=== PATIENT | female | born 1985 | race Caucasian/White ===

== ENCOUNTER 2017-10-08 10:10 | Emergency (ER) | payer SELFPAY | END 2017-10-08 12:10 | disposition home or self-care (01) | LOC: MADERS 10:10 | DX: B02.9 Zoster without complications (principal); F17.210 Nicotine dependence, cigarettes, uncomplicated; Z86.61 Personal history of infections of the central nervous system | CPT/HCPCS: 99282 ==

== ENCOUNTER 2017-12-30 21:36 | Emergency (ER) | payer SELFPAY | END 2017-12-30 22:10 | disposition home or self-care (01) | LOC: MADERS 21:36 | DX: R09.89 Other specified symptoms and signs involving the circulatory and respiratory systems (principal); F17.210 Nicotine dependence, cigarettes, uncomplicated; F41.9 Anxiety disorder, unspecified | CPT/HCPCS: 99282 ==

== ENCOUNTER 2018-01-19 19:57 | Emergency (ER) | payer SELFPAY ==
[2018-01-19] MEDS ORDERED: ALPRAZolam 0.25 MG TAB ONE (20:51)
[2018-01-19 20:58] LABS: Bilirubin Negative (Negative); Blood, Urine Small (Negative); Glucose, Urine (Dipstick) Negative (Negative); Leukocyte Negative (Negative); Nitrite Negative (Negative); Protein, Urine (Dipstick) Negative (Neg-Trace); Urobilinogen 0.2 mg/dL (0.2-1.0)
[2018-01-19 20:59] LABS: Clarity Hazy (Clear)
[2018-01-19 21:00] LABS: Bacteria/HPF 1+ HPF (None Seen)
--- NOTE | 2018-01-19 21:11 | RAD ---
CHEST TWO VIEWS: 01/19/2018 HISTORY: Weakness after surgery 96 hours ago. Fever. COMPARISON: None. FINDINGS: Two views of the chest show a normal sized cardiomediastinal silhouette. There is no evidence of con solidation, mass, or pleural effusion. There appear to be tissue expanders projecting over both ches t mace. Surgical drains are also seen. There is an air-fluid level projecting over the right thora x, which may represent an air-fluid level within the patient's tissue carton marker machine or in the subcutaneous pocket, in the right chest wall. IMPRESSION: 1. No evidence of acute cardiopulmonary disease. 2. Air-fluid level overlying the right chest wall, which may represent fluid within the patient's ti ssue carton marker machine or in the pocket of the right chest wall. POS: [facility]
== END 2018-01-19 21:24 | disposition home or self-care (01) ==
LOC: MADERS 19:57
DX: F41.9 Anxiety disorder, unspecified (principal); J98.11 Atelectasis; F17.210 Nicotine dependence, cigarettes, uncomplicated
CPT/HCPCS: 71046; 81003; 81015; 94799

== ENCOUNTER 2018-02-27 20:52 | Emergency (ER) | payer BC, SELFPAY ==
[2018-02-27] MEDS ORDERED: Amoxicillin/Potassium Clav 875 MG TAB ONE (21:24)
== END 2018-02-27 21:31 | disposition home or self-care (01) ==
LOC: MADERS 20:52
DX: J02.9 Acute pharyngitis, unspecified (principal); F41.9 Anxiety disorder, unspecified; F17.210 Nicotine dependence, cigarettes, uncomplicated
CPT/HCPCS: 87081; 87430; 99283

== ENCOUNTER 2018-07-29 21:53 | Emergency (ER) | payer BC | END 2018-07-29 22:22 | disposition home or self-care (01) | LOC: MADERS 21:53 | DX: B86 Scabies (principal); F41.9 Anxiety disorder, unspecified; F17.210 Nicotine dependence, cigarettes, uncomplicated; Z79.899 Other long term (current) drug therapy | CPT/HCPCS: 99282 ==

== ENCOUNTER 2018-08-04 14:31 | Emergency (ER) | payer BC ==
[2018-08-04] MEDS ORDERED: Dexamethasone 4 mg/ml Vial ONE (15:20)
[2018-08-04] MEDS ORDERED: Cephalexin 500 MG CAP ONE ×2 (15:20→15:21)
[2018-08-04] MEDS ORDERED: Dexamethasone 4 MG TAB ONE (15:21)
== END 2018-08-04 16:25 | disposition home or self-care (01) ==
LOC: MADERS 14:31
DX: L73.9 Follicular disorder, unspecified (principal); F17.210 Nicotine dependence, cigarettes, uncomplicated; F41.9 Anxiety disorder, unspecified; Z79.899 Other long term (current) drug therapy
CPT/HCPCS: 99283; J1100; J8540

== ENCOUNTER 2018-10-05 19:28 | Outpatient (CLI) | payer BC | END 2018-10-05 19:29 | LOC: MADLABBHPM 19:28 | PROVIDERS: ATTEND Family Medicine | DX: L91.8 Other hypertrophic disorders of the skin (principal) | CPT/HCPCS: 88305 ==

== ENCOUNTER → 2019-03-09 | Emergency (ER) | payer BC ==
[~2019-03-09] MED LIST: Iopamidol 370 76% 125 ML VIAL FS ONE
[2019-03-09 16:15] LABS: #Basophils 0.1 thou/uL (0.0-0.2); #Eosinphils 0.2 thou/uL (0.0-0.7); #Lymphocytes 2.5 thou/uL (1.20-3.40); #Monocytes 0.5 thou/uL (0.11-0.59); #Neutrophils 5.1 thou/uL (1.40-6.50); %Basophils 1.4 % (0.0-1.0); %Eosinophils 2.7 % (0.0-10.0); %Lymphocytes 30.1 % (21.0-51.0); %Monocytes 5.7 % (0.0-10.0); %Neutrophils 60.1 % (42.0-75.0); Hemoglobin 14.4 g/dL (12.0-16.0); Mean Corpuscular HGB CONC 32.8 g/dL (32.0-36.0); Mean Corpuscular Hemoglobin 28.3 pg (27.0-31.0); Mean Corpuscular Volume 86.3 fL (78.0-98.0); Mean Platelet Volume 8.1 fL (7.4-10.4); Platelet Count 288 thou/uL (130-400); RBC Distribution Width 11.9 % (11.5-14.5); White Blood Cell (WBC) Count 8.5 thou/uL (4.8-10.8)
[2019-03-09 16:26] LABS: BHCG - Serum Negative (NEGATIVE); Pregs Control Background? CLEAR/WHITE (CLR/WHITE); Pregs Control Bar Appear? YES (CONTROL BAR)
[2019-03-09 16:38] LABS: Bilirubin Large (Negative); Blood, Urine Trace (Negative); Clarity Clear (Clear); Glucose, Urine (Dipstick) 250 mg/dL (Negative); Leukocyte Large (Negative); Nitrite Positive (Negative); Protein, Urine (Dipstick) > or equal to 300 mg/dL (Neg-Trace); Urobilinogen > or = 8.0 mg/dL (Less than 2)
[2019-03-09 16:38] LABS: ALT (SGPT) 17 U/L (8-55); AST (SGOT) 25 U/L (5-34); Albumin 4.4 g/dL (3.5-5.0); Alkaline Phosphatase 124 U/L (40-150); Anion Gap 16 mmol/L (10-20); BUN (Urea Nitrogen) 7 mg/dL (7.0-18.7); Bilirubin, Total 0.3 mg/dL (0.2-1.2); CK (CPK) 104 U/L (29-168); Calc. Creatinine Clearance 0 mL/min (70-130); Calcium 9.6 mg/dL (7.8-10.44); Carbon Dioxide 23 mmol/L (22-29); Chloride 106 mmol/L (98-107); Estimated GFR-MDRD 65; Globulin 3.6 g/dL (2.4-3.5); Glucose 91 mg/dL (70-105); Lipase 67 U/L (8-78); Sodium 141 mmol/L (136-145)
[2019-03-09 16:43] LABS: Bacteria/HPF Rare-Few HPF (None Seen); RBC/HPF 0-3 HPF (0-3)
--- NOTE | 2019-03-09 17:28 | CT ---
CTA Angio Chest W WO Con 03/09/2019 4:33 PM Indication: Right upper quadrant and right chest pain; history of breast cancer Technique: Multiple CTA images were obtained of the thorax with IV contrast. 3D reformatted images were constructed from the raw data. Comparison: None Findings: Pulmonary arteries: No central or segmental pulmonary embolus is evident. Heart and Great Vessels: Normal appearing. Lungs:The lungs are clear. Pleural space: Clear. Upper Abdomen: No acute abnormality. Osseous Structures: No acute osseous abnormality. Impression: No central or segmental pulmonary embolus.
== END ==
LOC: MADERS 15:42
DX: R10.12 Left upper quadrant pain (principal); F17.210 Nicotine dependence, cigarettes, uncomplicated; Z79.899 Other long term (current) drug therapy
CPT/HCPCS: 36415; 71275; 80053; 81003; 81015; 82550; 83690; 84484; 84703; 85025; 85379; 93005; Q9967

== ENCOUNTER 2019-03-11 13:50 | Emergency (ER) | payer BC | END 2019-03-11 14:55 | disposition home or self-care (01) | LOC: MADERS 13:50 | DX: R10.12 Left upper quadrant pain (principal) | CPT/HCPCS: 99283 ==

== ENCOUNTER 2020-01-11 20:50 | Emergency (ER) | payer BC, OTHER ==
[2020-01-13 14:20] LABS: SARS-CoV-2 MS2 Positive; SARS-CoV-2 N Gene Negative; SARS-CoV-2 S Gene Negative; SARS-CoV-2 orf1ab Negative
== END 2020-01-11 22:45 | disposition home or self-care (01) ==
LOC: MADERS 20:50
DX: J02.9 Acute pharyngitis, unspecified (principal); R68.83 Chills (without fever); Z20.828 Contact with and (suspected) exposure to other viral communicable diseases; F17.210 Nicotine dependence, cigarettes, uncomplicated
CPT/HCPCS: 87081; 87430; 87635; 99283; U0003

== ENCOUNTER 2021-01-09 20:25 | Emergency (ER) | payer OTHER, SELFPAY ==
[2021-01-09 22:08] LABS: #Basophils 0.1 thou/uL (0.0-0.2); #Eosinphils 0.2 thou/uL (0.0-0.7); #Lymphocytes 2.8 thou/uL (1.20-3.40); #Monocytes 0.7 thou/uL (0.11-0.59); #Neutrophils 5.9 thou/uL (1.40-6.50); %Basophils 1.1 % (0.0-1.0); %Eosinophils 1.6 % (0.0-10.0); %Lymphocytes 28.6 % (21.0-51.0); %Monocytes 7.4 % (0.0-10.0); %Neutrophils 61.3 % (42.0-75.0); Hemoglobin 13.5 g/dL (12.0-16.0); Mean Corpuscular HGB CONC 32.4 g/dL (32.0-36.0); Mean Corpuscular Hemoglobin 29.5 pg (27.0-31.0); Mean Platelet Volume 9.3 fL (7.4-10.4); Platelet Count 247 thou/uL (130-400); RBC Distribution Width 11.9 % (11.5-14.5); Red Blood Cell (RBC) Count 4.58 mill/uL (4.20-5.40); White Blood Cell (WBC) Count 9.7 thou/uL (4.8-10.8)
[2021-01-09] MEDS ORDERED: Ibuprofen 800 MG TAB ONE (22:08)
[2021-01-09 22:26] LABS: ALT (SGPT) 13 U/L (8-55); AST (SGOT) 21 U/L (5-34); Albumin 4.2 g/dL (3.5-5.0); Alkaline Phosphatase 85 U/L (40-110); Anion Gap 13 mmol/L (10-20); BUN (Urea Nitrogen) 9 mg/dL (7.0-18.7); Bilirubin, Total 0.3 mg/dL (0.2-1.2); Calc. Creatinine Clearance 0 mL/min (70-130); Calcium 9.2 mg/dL (7.8-10.44); Carbon Dioxide 26 mmol/L (22-29); Chloride 107 mmol/L (98-107); Globulin 3.1 g/dL (2.4-3.5); Glucose 84 mg/dL (70-105); Protein, Total 7.3 g/dL (6.0-8.3); Sodium 143 mmol/L (136-145)
[2021-01-09 23:27] LABS: BHCG - Serum Negative (NEGATIVE); Pregs Control Background? CLEAR/WHITE (CLR/WHITE); Pregs Control Bar Appear? YES (CONTROL BAR)
== END 2021-01-09 23:06 | disposition home or self-care (01) ==
LOC: MADERS 20:25
DX: E87.6 Hypokalemia (principal); F17.210 Nicotine dependence, cigarettes, uncomplicated; Z79.899 Other long term (current) drug therapy
CPT/HCPCS: 36415; 80053; 84703; 85025; 93005